=== PATIENT | female | born 1985 | race American Indian/Alaskan Native ===

== ENCOUNTER 2022-11-14 16:03 | Emergency (ER) | payer BC ==
[~2022-11-14] VITALS: Ht 170.2 cm; Wt 79.5 kg
[2022-11-14 16:19] VITALS: TEMP 98.2
[2022-11-14 18:15] VITALS: BP 128/89; PULSE 85
== END 2022-11-14 18:15 | disposition home or self-care (01) ==
LOC: COL.ER 16:03
DX: S46.911A Strain of unspecified muscle, fascia and tendon at shoulder and upper arm level, right arm, initial encounter (principal); S60.221A Contusion of right hand, initial encounter; S67.21XA Crushing injury of right hand, initial encounter; Z28.310 Unvaccinated for COVID-19; V86.59XA Driver of other special all-terrain or other off-road motor vehicle injured in nontraffic accident, initial encounter